=== PATIENT | female | born 1950 | race Two or more races ===

== ENCOUNTER 2016-09-20 20:49 | Emergency (ER) | payer MEDICAID ==
[~2016-09-20] VITALS: Ht 165.1 cm; Wt 64.0 kg
[2016-09-20] MEDS ORDERED: SODIUM CHLORIDE 0.9% 1,000 ML IV ONE (22:10)
[2016-09-20 22:38] LABS: BASOPHILS % 0.3 % (0.0-2.0); EOSINOPHILS % 2.1 % (0.0-5.0); MEAN CORPUSCULAR HEMOGLOBIN 31.1 pg (28.0-32.0); MEAN CORPUSCULAR VOLUME 91.5 fL (81.0-99.0); MEAN PLATELET VOLUME 8.1 fl (7.4-10.4); MONOCYTES % 7.3 % (2.0-8.0); NEUTROPHILS % 78.3 % (40.0-76.0); PLATELET 260 x1000/uL (130-400); RED BLOOD CELL COUNT 4.49 mill/uL (4.2-5.4); RED CELL DISTRIBUTION WIDTH 12.4 % (11.6-14.6)
[2016-09-20 22:46] LABS: CHLORIDE 105 mEq/L (98-107)
[2016-09-20 22:47] LABS: PARTIAL THROMBOPLASTIN TIME 25.6 sec (24.0-34.0); PROTHROMBIN TIME 10.2 sec
[2016-09-20 22:48] LABS: CARBON DIOXIDE 29 mEq/L (21-32)
[2016-09-20 22:56] LABS: TROPONIN I < 0.02 ng/mL (0.00-0.04)
[2016-09-21] MEDS ORDERED: SODIUM CHLORIDE 0.45% 1,000 ML IV SCH (01:13)
[2016-09-21] MEDS ORDERED: NA PHOS,M-B/NA PHOS,DI-BA ENEMA 118ML PR PRN (01:15)
[2016-09-21] MEDS ORDERED: DIPHENHYDRAMINE 50MG/ML VIAL IV PRN (01:15)
[2016-09-21] MEDS ORDERED: DOCUSATE SODIUM 100MG CAPSULE PO PRN (01:15)
[2016-09-21] MEDS ORDERED: MAGNESIUM/ALUMINUM HYDROXIDE/SIMETHICONE 30ML UDC PO PRN (01:15)
[2016-09-21] MEDS ORDERED: LORAZEPAM 2MG/ML CPJ IV PRN (01:15)
[2016-09-21] MEDS ORDERED: ACETAMINOPHEN 325MG TABLET PO PRN (01:15)
[2016-09-21] MEDS ORDERED: HYDROMORPHONE HCL/PF 2MG/ML CPJ IV PRN (01:15)
[2016-09-21] MEDS ORDERED: GUAIFENESIN 200MG/10ML SUGAR FREE UDC PO PRN (01:15)
[2016-09-21] MEDS ORDERED: IPRATROPIUM/ALBUTEROL 0.5-3(2.5)MG/3ML NEB INH PRN (01:15)
[2016-09-21] MEDS ORDERED: ENOXAPARIN 40MG/0.4ML SYR SUBCUT SCH (01:15)
[2016-09-21] MEDS ORDERED: CLONIDINE 0.1MG TABLET PO PRN (01:15)
[2016-09-21] MEDS ORDERED: HYDROCODONE/ACETAMINOPHEN 5/325MG TABLET PO PRN (01:15)
[2016-09-21] MEDS ORDERED: ONDANSETRON HCL 4MG/2ML VIAL IV PRN (01:15)
[2016-09-21 01:42] LABS: CHLORIDE 111 mEq/L (98-107)
[2016-09-21 01:47] LABS: CARBON DIOXIDE 26 mEq/L (21-32)
[2016-09-21 03:00] VITALS: BP 117/76
[2016-09-21] MEDS ORDERED: ASPIRIN 81MG EC TABLET PO SCH (09:00)
== END 2016-09-21 04:14 | disposition left against medical advice (07) ==
LOC: ER 21:12 → EDBEDREQ 09-21 01:13 → EDBEDREQTM 09-21 01:13 → EDBEDREQ 09-21 01:39 → CANRESERV 09-21 03:31 → ENRESERV 09-21 03:31 → ER 09-21 04:14 → CANBEDREQ 09-21 04:33
DX: R55 Syncope and collapse (principal); R06.02 Shortness of breath
CPT/HCPCS: 36415; 70450; 71010; 80048; 80053; 81025; 83735; 83880; 84484; 85025; 85610; 85730; 93005; 96360; 99285; J7030; Z7610